=== PATIENT | male | born 1960 | race Caucasian/White ===

== ENCOUNTER 2018-03-27 06:27 | Emergency (ER) | payer OTHER ==
[~2018-03-27] VITALS: Ht 177.8 cm; Wt 90.7 kg
[~2018-03-27 06:27] MED LIST: ASPI325 PO; CARI350 PO; CHOL10002; CHOL10002 PO; CLON.1TP TP; CODBUTASA PO; CYCL10; CYCL10 PO; DOXY100 PO; Depo-Testo100 MG/1 M IM; EFFEXOR PO; Effexor Xr150 MG PO; HYDACE5 PO; IBUP600 PO; IBUP800; IBUP800 PO; LORA.5 PO; NAPR500 PO; OXYACE5T; OXYACE5T PO; OXYACE7.5T PO; OXYC15ER PO; OXYC5 PO; PARO10 PO; Percocet 5-3251 EACH PO; Roxicodone5 MG PO; TESTOSTER TD; TESTOSTERO200 MG/1 M IM; TOBDEXOPO LEFTEYE; Ultram50 MG PO; VENL75 PO; Zofran4 MG PO
[2018-03-27] MEDS ORDERED: Roxicodone5 MG PO (07:53)
[2018-03-27] MEDS ORDERED: Crutch1 EACH MISC (08:15)
== END 2018-03-27 08:25 | disposition home or self-care (01) ==
LOC: ER 06:27
DX: S83.92XA Sprain of unspecified site of left knee, initial encounter (principal); W18.30XA Fall on same level, unspecified, initial encounter; Z88.5 Allergy status to narcotic agent; Z88.8 Allergy status to other drugs, medicaments and biological substances; J44.9 Chronic obstructive pulmonary disease, unspecified; F17.210 Nicotine dependence, cigarettes, uncomplicated
CPT/HCPCS: 29505; 73562-LT; 99283-25

== ENCOUNTER 2018-08-25 12:38 | Emergency (ER) | payer OTHER ==
[~2018-08-25] VITALS: Ht 177.8 cm; Wt 99.8 kg
[~2018-08-25 12:38] MED LIST changes: +Crutch1 EACH MISC
== END 2018-08-25 14:42 | disposition home or self-care (01) ==
LOC: ER 12:38
DX: S06.0X9A Concussion with loss of consciousness of unspecified duration, initial encounter (principal); W22.8XXA Striking against or struck by other objects, initial encounter; Z88.5 Allergy status to narcotic agent; Z88.8 Allergy status to other drugs, medicaments and biological substances; F17.210 Nicotine dependence, cigarettes, uncomplicated
CPT/HCPCS: 70450; 72125; 99284-25

== ENCOUNTER → 2019-07-15 | Outpatient (CLI) | payer OTHER ==
[2019-07-15 14:49] LABS: Creatinine Urine 79.4 mg/dL (27.00-270.00); Protein, Urine Quantitative 5.9 mg/dL (0.0-11.9); Uric Acid, Urine 37.2 mg/dL (7.5-49.5)
[2019-07-15 14:58] LABS: Microalbumin, Urine Quant. 5.76 mg/L (0.000-20.000)
[2019-07-15 16:26] LABS: Phosphorus, Urine 87.3 mg/dL (20.0-60.0)
== END ==
LOC: LAB SHORT 12:14 → OLS 12:14 → LAB FUT 07-13 18:30
PROVIDERS: Internal Medicine Nephrology
DX: N18.2 Chronic kidney disease, stage 2 (mild) (principal); D63.1 Anemia in chronic kidney disease; R31.9 Hematuria, unspecified; N25.81 Secondary hyperparathyroidism of renal origin; E55.9 Vitamin D deficiency, unspecified; E78.00 Pure hypercholesterolemia, unspecified; R76.9 Abnormal immunological finding in serum, unspecified; R94.5 Abnormal results of liver function studies; R94.6 Abnormal results of thyroid function studies; R73.09 Other abnormal glucose; N20.0 Calculus of kidney
CPT/HCPCS: 81050; 82043; 82340; 82507; 82570; 83945; 84105; 84133; 84156; 84300; 84560

== ENCOUNTER 2020-05-15 02:04 | Inpatient (IN) | payer OTHER ==
[~2020-05-15] VITALS: Ht 175.3 cm; Wt 111.6 kg
[2020-05-15 02:22] LABS: BASOPHILS ABSOLUTE AUTO 0.08 K/mm3 (0.00-0.23); BASOPHILS PERCENT AUTO 1 % (0-2); EOSINOPHILS ABSOLUTE AUTO 0.18 K/mm3 (0.00-0.68); EOSINOPHILS PERCENT AUTO 1 % (0-6); Hematocrit 43.7 % (37.0-53.0); Hemoglobin 14.3 g/dL (13.5-17.5); IMMATURE GRAN ABSOLUTE AUTO 0.06 K/mm3 (0.00-0.10); IMMATURE GRAN PERCENT AUTO 0 % (0-1); LYMPHOCYTES ABSOLUTE AUTO 2.71 K/mm3 (0.84-5.20); LYMPHOCYTES PERCENT AUTO 20 % (21-46); MONOCYTES ABSOLUTE AUTO 1.08 K/mm3 (0.16-1.47); MONOCYTES PERCENT AUTO 8 % (4-13); Mean Corpuscular HGB 31.2 pg (26.0-34.0); Mean Corpuscular HGB Conc 32.7 g/dL (31.5-36.5); Mean Corpuscular Volume 95 fL (80-100); Mean Platelet Volume 10.3 fL (9.1-12.4); NEUTROPHILS ABSOLUTE AUTO 9.57 K/mm3 (1.96-9.15); NEUTROPHILS PERCENT AUTO 70 % (41-73); Platelet Count 267 K/mm3 (150-400); RDW Coefficient Variation 13.4 % (11.7-14.2); RDW Standard Deviation 47.4 fL (35.1-46.3); Red Blood Cell Count 4.58 M/mm3 (4.30-5.90); White Blood Cell Count 13.68 K/mm3 (4.00-11.30)
[2020-05-15 02:40] LABS: Alanine Aminotransfer (ALT/SGP 27 U/L (12-78); Albumin, Blood 3.3 g/dL (3.4-5.0); Albumin/Globulin Ratio 0.8 (0.8-1.8); Alk Phos 89 U/L (50-136); Anion Gap 5 mmol/L (6-16); Aspartate Aminotrans (AST/SGOT 19 U/L (12-37); Bilirubin, Total 0.1 mg/dL (0.1-1.0); Blood Urea Nitrogen 20 mg/dL (8-24); Bun/Creatinine Ratio 19.2 (12.0-20.0); CO2, Blood 29 mmol/L (21-32); Calcium, Blood 9.2 mg/dL (8.5-10.1); Chloride, Blood 106 mmol/L (98-108); Creatinine, Blood 1.04 mg/dL (0.60-1.20); Ethanol (Alcohol), Blood, Med <3 mg/dL; Globulin, Blood 3.9 g/dL (2.2-4.0); Glomerular Filtration Rate >60 (60-); Glucose, Blood 124 mg/dL (70-99); Potassium, Blood 4.2 mmol/L (3.5-5.5); Sodium, Blood 140 mmol/L (136-145); Total Protein, Blood 7.2 g/dL (6.4-8.2); Troponin I <0.015 ng/mL (0.000-0.040)
[2020-05-15 03:45] LABS: pH Blood Arterial 7.33 (7.35-7.45)
[2020-05-15 03:46] LABS: PO2 Arterial 127 mmHg (80-100)
[2020-05-15 03:59] LABS: Source, Urine Clean Catch
[2020-05-15 04:10] LABS: Bilirubin, Urine Neg (Neg); Blood, Urine Neg (Neg); Glucose Qualitative, Urine Neg (Neg); Ketones, Urine Neg (Neg); Leukocyte Esterase, Urine Neg (Neg); Nitrite, Urine Neg (Neg); Protein, Urine Neg (Neg); Specific Gravity, Urine 1.025 (1.003-1.022); Urobilinogen, Urine NORM (Normal)
[2020-05-15 04:12] LABS: Appearance, Urine Clear (Clear); Color, Urine Yellow (P-Yellow)
[2020-05-15 04:14] LABS: U Amphetamine Screen DETECTED; U Barbituate Screen Not Detected; U Benzodiazapine Screen DETECTED; U Buprenorphine Screen Not Detected; U Cannabinoids Screen DETECTED; U Cocaine Screen Not Detected; U Methadone Screen Not Detected; U Methamphetamine Screen DETECTED; U Opiates Screen DETECTED; U Oxycodone Screen DETECTED; U Phencyclidine Screen Not Detected; U Propoxyphene Screen Not Detected
[2020-05-15 05:05] LABS: CPK Creatine Kinase 187 U/L (39-308)
[2020-05-15 05:06] LABS: International Normalized Ratio 0.95; Prothrombin Time Results 10.2 Sec (9.7-11.5)
[2020-05-15 06:00] LABS: Influenza A, PCR Negative (NEGATIVE); Influenza B, PCR Negative (NEGATIVE); Resp Syncytial Virus, PCR Negative (NEGATIVE); SARS-Cov-2 (COVID-19) PCR, MMC Negative (NEGATIVE)
--- NOTE | 2020-05-15 06:25 | NUR ---
ADMIT PT ADMITTED TO ICU 10 VIA ER. ARRIVED VIA GURNEY WITH RN AND RT. PT ON VENT AND SEDATED WITH PROPOFOL. PT TRANSFERED TO BED BY STAFF WITH SLIDER SHEET. BILAT WRIST RESTRAINTS ON. SPLINT NOTED TO RIGHT WRIST. VSS. REPORT TO ON COMING NURSE
--- NOTE | 2020-05-15 07:58 | NUR ---
ASSUMED CARE: RECEIVED REPORT FROM NOC RN AT BEDSIDE. WHILE RECEIVING REPORT DAUGHTER OF PT ARIVES INTO THE ROOM AND APPEARS IN TEARS. APPEARS TO BE ANXIOUS MOVING ABOUT THE ROOM, PUPILS APPEAR TO BE VERY DIALLATED, AND ASKING QUESTIONS ABOUT WORDS STATED DURING REPORT SUCH EDEMA. EDUCATED DAUGHTER TO HER QUESTIONS. DAUGHTER STATES SHE IS 24 AND IS HIS OLDEST BIOLOGICAL CHILD, SHE CONTINUES TO STATE THAT THE SON THAT WAS MENTIONED IN THE DR DICTATION FROM ED IS NOT THE PATIENTS BIOLOGICAL SON AND IT IS JUST HER AND HER SISTER. EDUCATED DAUGHTER ON VISITATION RULES AT THIS TIME AND HOURS. STATES SHE DOES NOT WANT THE PATIENTS SISTER TO KNOW ANYTHING AT THIS TIME, ANY UPDATES TO THE PATIENTS SISTER WILL COME FROM THE DAUGHTER. DAUGHTER GAVE VERBAL CONCENT FOR BLOOD IF PT NEEDS.
--- NOTE | 2020-05-15 08:28 | NUR ---
SON: SON WENDY LEACH CALLED FOR AN UPDATE. STATES HE IS THE OLDEST OF THE PATIENTS CHILDREN AND RYANNE THE DAUGHTER THAT WAS HERE IS THE YOUNGEST. WENDY ALSO STATES HE WAS ADOPTED BY THE PT, ASKED IF THERE IS ANY PAPERWORK SHOWING LEGAL ADOPTION. STATES HE WILL LOOK TO SEE IF HIS MOTHER HAS THE PAPERWORK. THIS RN CONTACTED ALENA Carey RN IN PALATIVE CARE/ETHICS TEAM. ALENA STATES SHE WILL CONTACT THE SISTER SINCE SHE IS THE ONE ON THE FACE SHEET.
--- NOTE | 2020-05-15 08:40 | NUR ---
SISTER: PATIENTS SISTER RENATO CALLED FOR AN UPDATE. UPDATED HER ON THE SITUATION OF HIPPA AND FEDERAL LAW. LET HER KNOW THAT THE ETHICS DEPARTMENT HAS BEEN CONTACTED TO SORT OUT THIS ISSUE, BUT UNTIL THEN I AM ONLY ABLE TO INFORM HER THAT HE IS IN THE ICU AND THAT HE IS STABLE. RENATO STATES DR ANDINO TOLD HER THAT SHE WOULD BE ON THE LIST TO GET INFORMATION, BUT THIS RN EDUCATED HER THAT THIS IS NOT UP TO THE DOCTOR WHO IS ON THE LIST TO GET INFORMATION AND THE ETHICS DEPARTMENT IS INVOLVED TO GET THIS SORTED OUT.
[2020-05-15 10:22] LABS: BASOPHILS ABSOLUTE AUTO 0.06 K/mm3 (0.00-0.23); BASOPHILS PERCENT AUTO 1 % (0-2); EOSINOPHILS ABSOLUTE AUTO 0.15 K/mm3 (0.00-0.68); EOSINOPHILS PERCENT AUTO 2 % (0-6); Hematocrit 36.9 % (37.0-53.0); Hemoglobin 11.8 g/dL (13.5-17.5); IMMATURE GRAN ABSOLUTE AUTO 0.03 K/mm3 (0.00-0.10); IMMATURE GRAN PERCENT AUTO 0 % (0-1); LYMPHOCYTES ABSOLUTE AUTO 2.58 K/mm3 (0.84-5.20); LYMPHOCYTES PERCENT AUTO 32 % (21-46); MONOCYTES ABSOLUTE AUTO 0.68 K/mm3 (0.16-1.47); MONOCYTES PERCENT AUTO 8 % (4-13); Mean Corpuscular HGB 31.1 pg (26.0-34.0); Mean Corpuscular Volume 97 fL (80-100); Mean Platelet Volume 10.5 fL (9.1-12.4); NEUTROPHILS ABSOLUTE AUTO 4.58 K/mm3 (1.96-9.15); NEUTROPHILS PERCENT AUTO 57 % (41-73); Platelet Count 216 K/mm3 (150-400); RDW Coefficient Variation 13.5 % (11.7-14.2); RDW Standard Deviation 48.5 fL (35.1-46.3); White Blood Cell Count 8.08 K/mm3 (4.00-11.30)
[2020-05-15 10:51] LABS: Alanine Aminotransfer (ALT/SGP 20 U/L (12-78); Albumin, Blood 2.5 g/dL (3.4-5.0); Albumin/Globulin Ratio 0.8 (0.8-1.8); Alk Phos 69 U/L (50-136); Anion Gap 2 mmol/L (6-16); Aspartate Aminotrans (AST/SGOT 12 U/L (12-37); Bilirubin, Total 0.2 mg/dL (0.1-1.0); Blood Urea Nitrogen 15 mg/dL (8-24); Bun/Creatinine Ratio 22.9 (12.0-20.0); CO2, Blood 29 mmol/L (21-32); Calcium, Blood 8.3 mg/dL (8.5-10.1); Chloride, Blood 111 mmol/L (98-108); Creatinine, Blood 0.66 mg/dL (0.60-1.20); Glomerular Filtration Rate >60 (60-); Glucose, Blood 120 mg/dL (70-99); Potassium, Blood 3.7 mmol/L (3.5-5.5); Sodium, Blood 142 mmol/L (136-145); Total Protein, Blood 5.5 g/dL (6.4-8.2)
[2020-05-15 12:25] LABS: BASOPHILS ABSOLUTE AUTO 0.07 K/mm3 (0.00-0.23); BASOPHILS PERCENT AUTO 1 % (0-2); EOSINOPHILS ABSOLUTE AUTO 0.19 K/mm3 (0.00-0.68); EOSINOPHILS PERCENT AUTO 2 % (0-6); Hematocrit 37.6 % (37.0-53.0); Hemoglobin 12.1 g/dL (13.5-17.5); IMMATURE GRAN ABSOLUTE AUTO 0.03 K/mm3 (0.00-0.10); IMMATURE GRAN PERCENT AUTO 0 % (0-1); LYMPHOCYTES PERCENT AUTO 29 % (21-46); MONOCYTES ABSOLUTE AUTO 0.79 K/mm3 (0.16-1.47); MONOCYTES PERCENT AUTO 10 % (4-13); Mean Corpuscular HGB 31.4 pg (26.0-34.0); Mean Corpuscular HGB Conc 32.2 g/dL (31.5-36.5); Mean Corpuscular Volume 98 fL (80-100); Mean Platelet Volume 10.5 fL (9.1-12.4); NEUTROPHILS ABSOLUTE AUTO 4.82 K/mm3 (1.96-9.15); NEUTROPHILS PERCENT AUTO 58 % (41-73); Platelet Count 226 K/mm3 (150-400); RDW Coefficient Variation 13.8 % (11.7-14.2); RDW Standard Deviation 49.1 fL (35.1-46.3); Red Blood Cell Count 3.85 M/mm3 (4.30-5.90)
[2020-05-15 12:37] LABS: Alanine Aminotransfer (ALT/SGP 21 U/L (12-78); Albumin, Blood 2.6 g/dL (3.4-5.0); Albumin/Globulin Ratio 0.9 (0.8-1.8); Alk Phos 69 U/L (50-136); Anion Gap 1 mmol/L (6-16); Aspartate Aminotrans (AST/SGOT 12 U/L (12-37); Bilirubin, Total 0.2 mg/dL (0.1-1.0); Blood Urea Nitrogen 13 mg/dL (8-24); Bun/Creatinine Ratio 21.1 (12.0-20.0); CO2, Blood 30 mmol/L (21-32); Calcium, Blood 8.6 mg/dL (8.5-10.1); Chloride, Blood 111 mmol/L (98-108); Creatinine, Blood 0.62 mg/dL (0.60-1.20); Glomerular Filtration Rate >60 (60-); Glucose, Blood 112 mg/dL (70-99); Phosphorus, Blood 2.8 mg/dL (2.5-4.9); Potassium, Blood 3.6 mmol/L (3.5-5.5); Sodium, Blood 142 mmol/L (136-145); Total Protein, Blood 5.6 g/dL (6.4-8.2)
--- NOTE | 2020-05-15 19:45 | NUR ---
ASSESSMENT/ASSUMED CARE PT INTUBATED AND ON [facility] VENT. SEDATED WITH PROPOFOL AT 35 MCQ/KG/MN. LUNGS DECREASED, SUCTIONED LARGE AMT VIA ET TUBE THAN LUNGS CLEAR BUT DECREASED. VENT SETTINGS AC 18 TV 470 PEEP 5 FIO2 35%. LARGE AMT ORAL SERCTIONS NOTED. ORAL CARE DONE. HEART RATE REGULAR. BP STABLE. TRACE EDEMA TO BILAT HANDS AND LOWER EXT. SCD'S ON. BT+ OG TO LIS WITH YELLOW/GREEN BILE DRAINAGE. JUNE CATH PATENT AND DRAINING YELLOW URINE. IV 20G TO LEFT HAND WITH PROPOFOL, SITE CLEAR. IV 18G TO RIGHT AC WITH NS AT 150 ML/HR SITE CLEAR. BILAT SOFT WRIST RESTRAINT ON. BRACE NOTED TO RIGHT WRIST.
--- NOTE | 2020-05-15 20:40 | NUR ---
CALL TO MD CALL TO DR FREGOSO REGARDING SEDATION. WHEN TURNING PT HE TRIES TO SIT UP AND PULLS ON RESTRAINTS. HAD TO BE RESTRAINTED BY TWO STAFF MEMBERS TO PREVENT SELF EXTUBATION AND PROPOFOL HAD TO BE INCREASED TO 50 MCQ/KG/MIN FOR 5 MIN TO GET HIM TO CALM DOWN. OBTAINED ORDER FOR PRECEDEX GTT AND ATIVAN FROM DR FREGOSO.
--- NOTE | 2020-05-15 20:50 | NUR ---
MEDS STARTED PRECEDEX GTT AT 0.4 MCQ/KG/MIN.
[2020-05-16 04:02] LABS: BASOPHILS ABSOLUTE AUTO 0.04 K/mm3 (0.00-0.23); BASOPHILS PERCENT AUTO 0 % (0-2); EOSINOPHILS ABSOLUTE AUTO 0.14 K/mm3 (0.00-0.68); EOSINOPHILS PERCENT AUTO 1 % (0-6); Hematocrit 38.2 % (37.0-53.0); Hemoglobin 12.2 g/dL (13.5-17.5); IMMATURE GRAN ABSOLUTE AUTO 0.04 K/mm3 (0.00-0.10); IMMATURE GRAN PERCENT AUTO 0 % (0-1); LYMPHOCYTES ABSOLUTE AUTO 1.49 K/mm3 (0.84-5.20); LYMPHOCYTES PERCENT AUTO 14 % (21-46); MONOCYTES ABSOLUTE AUTO 0.73 K/mm3 (0.16-1.47); MONOCYTES PERCENT AUTO 7 % (4-13); Mean Corpuscular HGB Conc 31.9 g/dL (31.5-36.5); Mean Corpuscular Volume 97 fL (80-100); NEUTROPHILS PERCENT AUTO 77 % (41-73); Platelet Count 226 K/mm3 (150-400); RDW Coefficient Variation 13.6 % (11.7-14.2); Red Blood Cell Count 3.93 M/mm3 (4.30-5.90); White Blood Cell Count 10.54 K/mm3 (4.00-11.30)
[2020-05-16 04:31] LABS: Anion Gap 5 mmol/L (6-16); Blood Urea Nitrogen 7 mg/dL (8-24); Bun/Creatinine Ratio 13.4 (12.0-20.0); CO2, Blood 28 mmol/L (21-32); Calcium, Blood 8.5 mg/dL (8.5-10.1); Chloride, Blood 110 mmol/L (98-108); Creatinine, Blood 0.52 mg/dL (0.60-1.20); Glomerular Filtration Rate >60 (60-); Glucose, Blood 132 mg/dL (70-99); Magnesium, Blood 1.9 mg/dL (1.6-2.4); Phosphorus, Blood 2.9 mg/dL (2.5-4.9); Potassium, Blood 3.7 mmol/L (3.5-5.5); Sodium, Blood 143 mmol/L (136-145)
[2020-05-16 05:29] LABS: PCO2 Arterial 42.9 mmHg (35-45); PO2 Arterial 70.2 mmHg (80-100); pH Blood Arterial 7.44 (7.35-7.45)
--- NOTE | 2020-05-16 06:42 | NUR ---
SHIFT SUMMARY PT CONT INTUBATED AND ON [facility] VENT. CURRENT VENT SETTINGS AC 18 TV 470 PEEP 5 FIO2 35%. LUNGS DECREASED. SUCTIONED LARGE AMT SRECTIONS VIA ET TUBE, AND MOUTH. PT SEDATED ON PROPOFOL BUT STARTED ON PRECEDEX DUE TO TRYING TO SIT UP AND REACHING FOR ET TUBE WITH TURNING. PROPOFOL AT 35 MCQ/KG/MIN WITH PRECEDEX AT 0.4 MCQ/KG/MIN. HEART RATE REGULAR AND BP STABLE. PT MED WITH ATIVAN ONCE DURING THE SHIFT DUE TO PULLING AGAINST RESTRAINTS AND REACHING FOR ET TUBE. OG TO LIS WITH 400 ML OUT DURING THE NIGHT. PT TURNING SIDE TO SIDE DURING THE NIGHT. BED BATH GIVEN. REPORT TO ON COMING NURSE
--- NOTE | 2020-05-16 07:51 | NUR ---
ASSUMED CARE RECEIVED REPORT FROM [facility] GONSALVES. RIKERS SCALE OF 3. PT IS INTUBATED WITH 8.0 ETT, 25 @ TEETH. VENT SETTINGS: AC 18/470/5/35%. CURRENT GTTPs: PROPOFOL AT 35 MCG/KG/MIN, PRECEDEX AT 0.4 MCG/KG/HR, AND NS AT 150 ML/HR. HE IS IN SINUS RHYTHM, WITH A RIGHT BBB, RATE IN THE 70s. SPO2 IS 96%. BP STABLE, BUT SOFT, MAP > 65. RR 24-25. TEMP 99.5. PT HAS A PATENT JUNE WITH DARK COLORED URINE. SCDs IN PLACE. SWB RESTRAINTS IN PLACE. BED LOW AND LOCKED.
--- NOTE | 2020-05-16 11:09 | NUR ---
UPDATE TALKED WITH RENATO, SISTER, ON THE PHONE. SHE INFORMED ME ABOUT THE PT'S PROBLEM WITH SEVERE NECK PAIN FOR THE LAST WEEK, ALONG WITH EXCESSIVELY BLOWING HIS NOSE (SOMETIMES FOR AN HOUR STRAIGHT), AND HIS PROBLEM WITH ARTHRITIS IN HIS RIGHT ARM/HAND/WRIST. HE HAD AN APT WITH AN ENT (SHE IS UNSURE WHO) DOCTOR BUT THEN 'THIS HAPPENED'. RENATO SAYS THAT RYANNE, ONE OF THE DAUGHTERS, HAS BEEN TAKING PICTURES OF THE PT "AGAINST HIS WISHES". JUST TO PLEASE WATCH OUT FOR THAT. THE PLAN IS FOR WENDY, THE SON, TO VISIT THE PT TOMORROW, AND SHE ASKED IF WE COULD HOLD THAT SPOT FOR HIM.
--- NOTE | 2020-05-16 15:29 | NUR ---
UPDATE PT HAS BEEN HAVING SOFT BLOOD PRESSURES, SO PROPOFOL AND PRECEDEX WERE TITRATED DOWNWARD, SHORTLY AFTER THE PT WOKE UP, EYES OPEN, VERY AGITATED AND ANXIOUS, MOVING AROUND, LIFTING HEAD UP, PULLING ON RESTRAINTS - REACHING FOR THE ETT. PT COUGHING UP LOTS OF SECRETIONS, THIN CLEAR/WHITE MAINLY TRACHEAL. RR INCREASING TO THE 33s. PRECEDEX WAS TURNED UP TO 0.7 MCG/KG/HR, WHILE PROPOFOL IS AT 40 MCG/KG/MIN. PT GOT A SMALL FLUID BOLUS (250 ML) AND RESPONDED WELL, CURRENTLY RECEIVING NS AT 150 ML/HR. PT CALM AND COOPERATIVE NOW. BP STABLE, MAP > 65. NARROWED PULSE PRESSURE. BED LOW AND LOCKED.
--- NOTE | 2020-05-16 17:44 | NUR ---
SHIFT SUMMARY NO MAJOR CHANGES TODAY. A FEW TIMES T/O DAY PT WOKE UP AND BECAME VERY AGITATED VERY QUICKLY. NOT FOLLOWING COMMANDS, OPENING EYES BUT NOT LOOKING AT ME WHEN I WAS NEAR HIM, AND PULLING AT RESTRAINTS, REACHING FOR THE ETT. HE IS ON PRECEDEX AT 0.7 MCG/KG/HR, AND PROPOFOL AT 40 MCG/KG/MIN. OTHER THAN HIS PERIODS OF AGITATION - [facility] 3, SEDATED, RESTING ON THE VENT. SETTINGS ARE: AC 15/470/5/30%. ALONG WITH THE AGITATION PT HAS BEEN HAVING COPIOUS TRACHEAL SECRETIONS, THIN AND WHITE, BUT WHEN SEDATED/RESTING HE DOESN'T COUGH TOO MUCH AND DOESN'T HAVE NEARLY MUCH SECRETIONS NEEDING TO BE SUCTIONED. PT'S HR HAS TRENDED DOWNWARD TO THE 60s RANGE. SPO2 MID 90s - NO ISSUES ALL DAY. SOFT BPs, MAP > 65, NARROW PULSE PRESSURE. PT's LOW GRADE FEVER DECREASED T/O DAY, ONLY INTERVENTION WAS TAKING OFF HIS BLANKET, TEMP NOW 98.0-99.0F. TUBE FEEDING WAS STARTED TODAY, VITAL HIGH PROTEIN STARTED AT 25 ML/HR, RESIDUALS AT 1600 WERE ~ 8 ML. SUGAR AT ~[address] FREGOSO DECREASED FLUIDS (NS) TO 75 ML/HR, FROM 150 ML/HR - THE PT HAS BEEN HAVING SOFT BPs, AND HE BELIEVES THE PT IS NOT FLUID OVERLOADED. HE CONTINUES TO HAVE SWB RESTRAINTS, SCDs, AND A TEMP JUNE PATENT HAVING YELLOW-GREEN URINE. RENATO HAS BEEN UPDATED, AND WENDY (SON) HAS BEEN IN CONTACT - HE WISHES TO VISIT TOMORROW. RYANNE ALSO CALLED IN AND RECEIVED AN UPDATE - SHE IS VERY EMOTIONAL, AND WAS CRYING, SHE SAYS THAT SHE WILL CALL TOMORROW AT 1000 am TO SEE IF WENDY HAS COME IN OR NOT - SO THAT SHE CAN COME IN IF HE DOESNT, IF WENDY DOES COME IN, SHE WANTS TO COME IN ON FRIDAY HIS VISITOR. BED LOW AND LOCKED.
--- NOTE | 2020-05-16 22:56 | NUR ---
CARE ASSUMED 1900 PT INTUBATED AND SEDATED. PROPOFOL AT 40 MCG/KG/MIN AND PRECEDEX 0.7 MCG/KG/HR. AC 15/470/5/30%, SPO2 > 90%. PT RESPONDS TO NOXIOUS STIMULI, GRIMACING DURING ORAL CARE. HE IS IN SINUS RHYTHM WITH A BBB, MAP > 60 AND HR 50'S. VITAL HIGH PROTEIN AT 25 ML/HR WITH RESIDUAL OF 275 MLS. PLACED ON STANDBY FOR ONE HOUR. TEMP JUNE IN PLACE WITH YELLOW CLEAR URINE. PTS SPO2 DECREASED TO 87-90% AND FIO2 INCREASED TO 35% WITH GOOD RESPONSE.
[2020-05-17 03:50] LABS: BASOPHILS ABSOLUTE AUTO 0.06 K/mm3 (0.00-0.23); BASOPHILS PERCENT AUTO 1 % (0-2); EOSINOPHILS ABSOLUTE AUTO 0.14 K/mm3 (0.00-0.68); EOSINOPHILS PERCENT AUTO 2 % (0-6); Hematocrit 37.1 % (37.0-53.0); Hemoglobin 11.8 g/dL (13.5-17.5); IMMATURE GRAN ABSOLUTE AUTO 0.03 K/mm3 (0.00-0.10); IMMATURE GRAN PERCENT AUTO 0 % (0-1); LYMPHOCYTES ABSOLUTE AUTO 1.96 K/mm3 (0.84-5.20); LYMPHOCYTES PERCENT AUTO 24 % (21-46); MONOCYTES ABSOLUTE AUTO 0.69 K/mm3 (0.16-1.47); MONOCYTES PERCENT AUTO 8 % (4-13); Mean Corpuscular HGB 31.3 pg (26.0-34.0); Mean Corpuscular HGB Conc 31.8 g/dL (31.5-36.5); Mean Corpuscular Volume 98 fL (80-100); Mean Platelet Volume 10.6 fL (9.1-12.4); NEUTROPHILS PERCENT AUTO 65 % (41-73); Platelet Count 209 K/mm3 (150-400); RDW Coefficient Variation 13.8 % (11.7-14.2); RDW Standard Deviation 50.4 fL (35.1-46.3); Red Blood Cell Count 3.77 M/mm3 (4.30-5.90); White Blood Cell Count 8.18 K/mm3 (4.00-11.30)
[2020-05-17 04:09] LABS: Anion Gap 2 mmol/L (6-16); Blood Urea Nitrogen 6 mg/dL (8-24); Bun/Creatinine Ratio 9.4 (12.0-20.0); CO2, Blood 30 mmol/L (21-32); Calcium, Blood 8.7 mg/dL (8.5-10.1); Chloride, Blood 113 mmol/L (98-108); Creatinine, Blood 0.64 mg/dL (0.60-1.20); Glomerular Filtration Rate >60 (60-); Glucose, Blood 132 mg/dL (70-99); Magnesium, Blood 1.9 mg/dL (1.6-2.4); Phosphorus, Blood 3.7 mg/dL (2.5-4.9); Potassium, Blood 3.5 mmol/L (3.5-5.5); Sodium, Blood 145 mmol/L (136-145)
[2020-05-17 05:44] LABS: PCO2 Arterial 42.3 mmHg (35-45); pH Blood Arterial 7.39 (7.35-7.45)
--- NOTE | 2020-05-17 06:38 | NUR ---
SBT 0500 PROPOFOL PLACED ON STANDY AND PRECEDEX AT 0.7 MCG/KG/HR. PS 5, PEEP 0, AND FIO2 OF 35%. PER RT PT PASSED SBT. TIDAL VOLUMES BETWEEN [phone], RR BETWEEN 17-21, SPO2 96-98, HR 59-65, MAP > 65. PT ABLE TO FOLLOW COMMANDS AND NOD HEAD "YES/NO" TO SIMPLE QUESTIONS SUCH BEING IN PN. PT HAS THICK COPIOUS SECREATIONS WELL. PT BECAME AGIGATED AFTER SBT AND REQUIRED PROPOFOL AT 75 MCG/KG/MIN, SEE SHIFT SUMMARY.
--- NOTE | 2020-05-17 07:18 | NUR ---
SHIFT SUMMARY PT INTUBATED AND SEDATED. PROPOFOL AT 65 MCG/KG/MIN AND PRECEDEX 0.7 MG/KG/HR. AC 15/470/5/35%, SPO2 > 95%. DURING SEDATION VACATION PT ABLE TO FOLLOW COMMANDS, NOD YES/NO TO SIMPLE QUESTION, AND SQUEEZE HANDS BILATERALLY. AFTER SBT AND SEDATION VACATION PT BECAME AGITATED. PT STARTED TO PULL AT RESTRAINTS, KICKING IN BED, AND ATTEMPTING TO EXTUBATE. PROPOFOL AT THIS POINT INCREASED FROM 35 MCG/KG/MIN TO 75 MCG/KG/MIN. PT TREATED WITH ATIVAN 2 MG WITH GOOD EFFECT. PT TOLERATED SBT WELL, SEE SBT NOTE. OG TUBE IN PLACE AND VITAL HIGH PROTEIN PLACED ON PAUSE DUE TO HIGH RESIDUALS AND HYPOACTIVE BOWEL TONES, GOAL OF 35 ML/HR NOT REACHED DURING THIS SHIFT. TEMP JUNE IN PLACE WITH DARK YELLOW CLOUDY URINE. SWB AND SCDS IN PLACE. WILL REPORT TO ONCOMING SHIFT.
--- NOTE | 2020-05-17 08:00 | NUR ---
INITIAL ASSESSMENT PATIENT INTUBATED AND SEDATED ON PROPOFOL AND PRECEDEX. PATIENT UNRESPONSIVE. PROPOFOL DECREASED FROM 65 TO 55 MCG/ KG/ MINUTE. PATIENT AFEBRILE. NO SIGNS OF PAIN. SCLERA JAUNDICED/ RED/ EDEMATOUS. LUNGS COARSE THROUGHOUT; DIMINISHED IN BASES. NO SECRETIONS NOTED UPON SUCTIONING. VENT SETTINGS AC 15, TV 470, PEEP 5, 35% FIO2. PATIENT SB WITH BBB, HR IN THE 50S. SBP 90S TO LOW 100S. TRACE EDEMA NOTED IN UPPER AND LOWER EXTREMITIES. SCDS IN PLACE. ABDOMEN MILDLY DISTENDED, SOFT, WITH TYMPANIC BS NOTED. DATE OF LAST BM UNKNOWN. TF ON HOLD FOR HIGH RESIDUALS DURING NIGHT AND RESIDUALS OF 105 MLS THIS AM. TEMP PROBE JUNE DRAINING YELLOW/ GREEN COLORED URINE. SKIN APPEARS WNL. PRECEDEX AT 0.7 MCG/ KG/ HOUR, NS AT 75 MLS/ HOUR. BED LOW, CALL LIGHT IN REACH. WILL CONTINUE TO MONITOR PATIENT FREQUENTLY THROUGHOUT SHIFT.
--- NOTE | 2020-05-17 10:54 | NUR ---
PATIENT EXTUBATED AT 1020 AFTER PROPOFOL PLACED ON STANDBY AND PATIENT FOLLOWING SIMPLE COMMANDS. PATIENT ORIENTED TO SELF, SON THAT IS PRESENT IN ROOM, FOLLOWING DIRECTIONS. PATIENT CONFUSED TO WHY HE IS IN HOSPITAL. PATIENT STATES THAT THE LAST THING HE REMEMBERS IS GOING TO SLEEP. PATIENT ASKED IF HE REMEMBERS TAKING ANY DRUGS. PATIENT STATES "A LOT OF WEED". SUICIDE RISK ASSESSMENT PERFORMED AND PATIENT DENIES ANY SUICIDAL IDEATION. CHIEF CARDIOPULMONARY TECHNOLOGIST PRESENT TO SIT 1:[address] GARCIA CALLED AND INFORMED OF SUICIDE RISK ASSESSMENT. DOCTOR STATED THAT SHE DOES NOT BELIEVE PATIENT TRIED TO OVERDOSE AND DOES NOT SEEM HIS A SUICIDE RISK. DOCTOR STATED NO NEEDS FOR HOLD OR ANY TYPE OF SUICIDE MONITORING AT THIS TIME. CHIEF CARDIOPULMONARY TECHNOLOGIST INFORMED THAT THEY NO LONGER NEED TO SIT TO WATCH PATIENT AND THAT NO VIDEO MONITORING IS NEEDED. CHARGE NURSE, JOHNATHON GAONA, UPDATED ON SITUATION. PATIENT'S SON, WENDY, REMAINS IN ROOM WITH PATIENT. NURSE ABLE TO VISUALIZE FROM NURSING STATION COMPUTER.
--- NOTE | 2020-05-17 12:46 | NUR ---
PATIENT LABILE. PATIENT CHANGES BETWEEN JOKING WITH SON AND NURSE TO CRYING AND BEING IRRITABLE. PATIENT DISORIENTED TO MONTH AND WHY IS HE IN HOSPITAL. PATIENT CONTINUES TO ASK HOW HE ENDED UP IN HOSPITAL EVEN AFTER NURSE UPDATING. PATIENT REMAINS ON PRECEDEX AT 0.4 MCG/ KG/ HOUR BECAUSE OF AGITATION. WILL DECREASE ABLE. PATIENT AFEBRILE. PATIENT SATTING 90% AND GREATER ON RA. LUNGS REMAIN COARSE. PATIENT CONTINUES TO COUGH UP PHLEGM. HR 60S TO 70S. SBP 130S TO 140S. OG AND TF DC'D WHEN PATIENT EXTUBATED. BLOOD SUGAR OF 112. SON REMAINS AT BEDSIDE. BED LOW, CALL LIGHT IN REACH, BED ALARM ON. WILL CONTINUE TO MONITOR.
--- NOTE | 2020-05-17 14:34 | NUR ---
PATIENT EXTREMELY AGITATED THAT DOCTOR HAS NOT COME TO LOOK AT HIS WRIST. L WRIST DOES APPEAR SLIGHTLY EDEMATOUS AND SLIGHTLY REDDENED. PATIENT STATES HE FELL ON IT BEFORE HE WAS BROUGHT HERE IN AN AMBULANCE. PATIENT YELLS "IF DOCTOR DOESN'T COME TO SEE MY HAND THEN I AM OUT OF HERE!". DR. GARCIA CALLED AND INFORMED. DOCTOR STATED THAT SHE WOULD BE DOWN TO SEE HIM. PATIENT INFORMED.
--- NOTE | 2020-05-17 16:35 | NUR ---
TEMP OF PATIENT 99.1 DEGREES FAHRENHEIT. REMAINS SATTING 90% AND GREATER ON RA. HR 60S TO 70S. SBP 140S TO 160S. NO OTHER ACUTE CHANGES TO NOTE ON AT THIS TIME.
--- NOTE | 2020-05-17 17:17 | NUR ---
DR. GARCIA INFORMED THAT PATIENT'S BP CONTINUES TO BE HIGH. ORDERS RECEIVED.
--- NOTE | 2020-05-17 18:39 | NUR ---
SHIFT SUMMARY PATIENT INTUBATED AND SEDATED AT BEGINNING OF THE SHIFT. PATIENT EXTUBATED AT 1020. PATIENT HAS BEEN SATTING 90% AND GREATER ON RA. PATIENT CONTINUES TO HAVE STRONG, PRODUCTIVE COUGH. PATIENT HAD TMAX OF 99.1 DEGREES FAHRENHEIT. PATIENT HAS BEEN ALERT AND ORIENTED X 3. PATIENT HAS BEEN LABILE AND VERY AGITATED/ ANGRY AT TIMES. PATIENT NOT HAPPY THAT HE IS HERE IN HOSPITAL. PATIENT UPSET THAT THE DOCTORS WEREN'T "MORE CONCERNED WITH LEFT HAND AND WRIST". 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 IV PRESENT IN PATIENT'S L HAND MOST OF THE SHIFT. L HAND IV DRAWING BLOOD AND FLUSHING WELL. FLUIDS WERE MOVED FROM L HAND TO R AC AT BEGINNING OF SHIFT. XRAY OF L HAND AND WRIST PERFORMED. DR. GARCIA CAME TO LOOK AT HAND AND SOLUMEDROL IV GIVEN TO HELP. PATIENT HAS REMAINED SB TO SR, HR 50S TO 70S. SBP 90S TO 180S. PRN HYDRALAZINE OBTAINED AND GIVEN FOR HTN. NO BM THIS SHIFT. PATIENT HAD SWALLOW EVAL AND INCREASED TO FULL LIQUID DIET. PATIENT WAS NOT INTERESTED IN EATING. TEMP JUNE DRAINED ADEQUATE AMOUNT OF YELLOW/ GREEN URINE. PRECEDEX REMAINS INFUSING AT 0.7 MCG/ KG/ HOUR FOR PATIENT AGITATION. PATIENT RECEIVED ROCEPHIN THIS SHIFT. PATIENT WATCHING TV IN ROOM. BED LOW, CALL LIGHT IN REACH. REPORT WILL BE GIVEN TO ONCOMING COLLISION ESTIMATOR NURSE SHORTLY.
--- NOTE | 2020-05-17 21:15 | NUR ---
ASSUMED PT CARE AT 1915 FROM [facility] PT SITTING UP IN BED CURSING AT STAFF. UPSET THAT HE HAS "GREEN DRAINAGE" COMING FROM HIS NOSE AND HE KNOWS THAT MEANS AN INFECTION. PT STATED THAT STAFF DOESN'T GIVE A "F" AND THAT NO WONDER WHY "[facility] HAS THEIR BAD REP". DRAINAGE FROM NOSE THAT WAS NOTED ON WASH CLOTH WAS CLEAR AND THIN IN COLOR. ASKED PT HOW HE CONSUMES HIS METH BECAUSE THAT WILL CAUSE THE NOSE TO DRAIN. PT BECAME QUIET AND DIDN'T WANT TO ANSWER. INFORMED PT THAT NO JUDGMENT WAS BEING PASSED AND THAT IT WAS JUST A QUESTION TO GET TO THE BOTTOM OF THE NASAL DRAINAGE. PT MOCKED AND REPEATED WHAT I HAD SAID AND CONTINUED ON THAT HE HAS ONLY DONE METH A COUPLE TIMES. REASSURED PT THAT A FULL WORK UP WAS PERFORMED WHEN HE WAS ADMITTED TO THE HOSPITAL WITH NO INDICATION OF UNDERLYING INFECTION. PT ADAMANT THAT HIS NOSE DRAINAGE IS NOT NORMAL. PT STARTED COUGHING AND FORCING AIR OUT OF HIS MOUTH AND ASKED IF THAT WAS NORMAL. CONTINUED TO MAKE DEROGATORY COMMENTS ABOUT THIS NURSING STAFF AND THE HOSPITAL. INFORMED PT THAT HE HAD THE RIGHT TO LEAVE AND THAT I WAS HERE TO DO A JOB IN WHICH THAT CONSISTED TAKING CARE OF HIM. PT STATED THE LEAST I COULD DO IS HAVE A SMILE ON MY FACE. INFORMED HIM THAT STAFF ISN'T GOING TO WANT TO SMILE AT HIM IF HE CONTINUES TO MAKE DEROGATORY COMMENTS AND INSULTS TOWARD THE STAFF. PT STATED HE WOULD LEAVE IF HE KNEW HE WOULDN'T BE BLAMED BY THE HOSPITAL; VERY LABILE MOOD. MAKING NONSENSICAL STATEMENTS. CALL LIGHT WITHIN REACH AND PT STATED HE DIDN'T NEED ANYTHING ELSE. PRECEDEX TURNED OFF IT DIDN'T APPEAR TO BE MAKING A DIFFERENCE. THIS APPEARS TO BE PT'S BASELINE.
--- NOTE | 2020-05-18 00:30 | NUR ---
REASSESSMENT REAPPROACHED PT FOR REASSESSMENT. PT WAS STILL VERY UPSET THAT THE STAFF HASN'T COMMUNICATED WELL WITH HIM, HE CAME IN SCARED AND NOT KNOWING WHAT WAS GOING ON, IT IS LOUD OUT AT THE NURSES STATION, AND THE STAFF HAVEN'T "CARED" REGARDING HIS SWOLLEN HAND/WRIST. EXPRESSED TO PT THAT WITH HIS DEROGATORY COMMENTS AND INSULTS TOWARDS THE STAFF THEN IT CREATES A COMMUNICATION BARRIER THE STAFF DON'T WANT TO ENGAGE WITH SOMEONE WHO IS TREATING THEM POORLY. PT APOLOGIZED FOR HIS BEHAVIOR AND JUST VOCALIZED HIS FRUSTRATIONS; ACKNOWLEDGED PT'S FRUSTRATIONS AND SYMPATHIZED WITH PT. ASKED IF PT WANTED TO GET OUT OF BED AND INTO A RECLINER IN WHICH HE WAS WILLING. THEREFORE, DISCONTINUED JUNE CATHETER AND ASSISTED TO TOILET FOR PT TO HAVE A BM IN WHICH HE WAS SUCCESSFUL. ASSISTED PT TO RECLINER ONCE OFF THE TOILET. PT IS IN BETTER SPIRITS. STILL TEARFUL AT TIMES D/T PAIN IN HIS HANDS. STATES HE WAS GIVEN RHEUMATOID ARTHRITIS DX; HOWEVER, UNABLE TO START HIS MEDS D/T THE SPECIFIC DOCUMENTATION [facility] REQUIRES IN ORDER TO START THE MEDICATION. THEREFORE, PT VERY TEARFUL WITH THE DISCOMFORT AND PAIN HE EXPERIENCES IN HIS HANDS. HE ALSO MADE A COMMENT THAT IS THE REASON HE DOES DRUGS IS TO ESCAPE HIS PAIN. OBTAINED A COKE FOR PT. CALL LIGHT IS WITHIN REACH. ABLE TO MAKE HIS NEEDS KNOWN.
[2020-05-18 03:41] LABS: Hematocrit 38.9 % (37.0-53.0); Hemoglobin 12.7 g/dL (13.5-17.5); Mean Corpuscular HGB 31.2 pg (26.0-34.0); Mean Corpuscular HGB Conc 32.6 g/dL (31.5-36.5); Mean Corpuscular Volume 96 fL (80-100); Mean Platelet Volume 10.4 fL (9.1-12.4); Platelet Count 261 K/mm3 (150-400); RDW Coefficient Variation 13.1 % (11.7-14.2); RDW Standard Deviation 46.4 fL (35.1-46.3); Red Blood Cell Count 4.07 M/mm3 (4.30-5.90); White Blood Cell Count 11.04 K/mm3 (4.00-11.30)
[2020-05-18 04:00] LABS: Anion Gap 4 mmol/L (6-16); Blood Urea Nitrogen 7 mg/dL (8-24); Bun/Creatinine Ratio 13.3 (12.0-20.0); CO2, Blood 28 mmol/L (21-32); Calcium, Blood 9.2 mg/dL (8.5-10.1); Chloride, Blood 112 mmol/L (98-108); Creatinine, Blood 0.53 mg/dL (0.60-1.20); Glomerular Filtration Rate >60 (60-); Glucose, Blood 121 mg/dL (70-99); Magnesium, Blood 1.9 mg/dL (1.6-2.4); Phosphorus, Blood 3.5 mg/dL (2.5-4.9); Potassium, Blood 3.5 mmol/L (3.5-5.5); Sodium, Blood 144 mmol/L (136-145)
--- NOTE | 2020-05-18 05:53 | NUR ---
END OF SHIFT SUMMARY NO SIGNIFICANT CHANGES. PT CONTINUES TO OPEN UP TO THIS NURSE REGARDING TRIUMPHS AND DIFFICULTIES IN LIFE. VERY TEARFUL T/O SHIFT. SAYS HIS PAIN IN HIS HANDS IS SO UNBEARABLE THAT IT MAKES IT HARD TO MAKE LIFE WORTH LIVING. SAYS HE ONLY STAYS AROUND FOR HIS KIDS. STATES HE IS VERY CLEAR IN THE HEAD AND WILL CONTINUE TO USE DRUGS TO ESCAPE HIS PAIN. STATES HE IS FRUSTRATED WITH THE SYSTEM IN WHICH IT IS VERY DIFFICULT TO COME ACROSS PAIN MEDS. STATES HE MIGHT GET BETTER CARE IF HE ACTUALLY "CUT HIS HANDS OFF". PT STATES HE WAITED 3 MONTHS TO GET INTO AN ENT IN WHICH HE WAS TOLD HE NEEDED TO SEE A JIG AND FIXTURE REPAIRER. PT STATES HE CONTINUES TO GET DISCOURAGED AND IS TIRED OF WAITING ON APPTS AND HAS THEREFORE TURNED TO DRUGS FOR PAIN MANAGEMENT. WILL CONTINUE TO MONITOR UNTIL REPORT IS HANDED OFF TO ONCOMING RN. CALL LIGHT WITHIN REACH.
--- NOTE | 2020-05-18 08:55 | NUR ---
CARE ASSUMED ASSESSMENT COMPLETED, PT SITTING UP IN CHAIR, INDEPENDENT IN ROOM, ORIENTED X4. MOODS ARE LABILE, PT IRRITABLE, CRYING, AND JOKING DURING ASSESSMENTS. HRR, LS COARSE T/O, PT COUGHING UP CLEAR SPUTUM. ABD DISTENDED BUT SOFT, GOOD BT. BILAT WRISTS SWOLLEN AND PAINFUL, L MORE THAN R, PT STATES THIS IS FROM RA. ABX INFUSING PER ORDERS, PT COOPERATIVE WITH CARE. DR. ANDREA TO ASSESS, AWAITING ORDERS.
[2020-05-18] MEDS ORDERED: OMEP20ER PO (12:18)
[2020-05-18] MEDS ORDERED: LEVFLO500 PO (12:18)
[2020-05-18] MEDS ORDERED: PRED20 PO (12:21)
--- NOTE | 2020-05-18 14:25 | NUR ---
DISCHARGE NOTE IV ABX INFUSION COMPLETED THIS MORNING, TOLERATED WELL, PT EXPRESSES WISHES TO BE DC'D OR LEAVE AMA. PT SPOKE WITH REGARDING CONTINUED COUGH, CXR ORDERED. ALSO EXPRESSED CONCERNS REGARDING ARTHRITIS IN BILAT HANDS AND WRISTS, SOLUMEDROL ORDERED, SIGNIFICANT DECREASE IN SWELLING TO WRISTS WITHIN 2 HOURS AFTER PT RECEIVED IV STEROID. MOODS REMAIN LABILE, ATIVAN ADMINISTERED PER DR. GARCIA WITH GOOD RESULTS. PT REFUSED MEALS STATING HE HAS NO APPETITE, TAKING PO FLUIDS WITHOUT DIFFICULTY. CXR REVIEWED BY DR. GARCIA, DC ORDERS RECEIVED, IV DC'D WITH TIP INTACT, PRESSURE DRESSING APPLIED. PT GIVEN DC, MED, AND F/U INSTRUCTIONS, VERBALIZES UNDERSTANDING. INDEPENDENT WITH DRESSING, REFUESES WC, ESCORTED OUT OF UNIT, GAIT STEADY. DAUGHTER TO TAKE PATIENT HOME.
== END 2020-05-18 13:10 | disposition home or self-care (01) | DRG 917 ==
LOC: ER 02:04 → ICUW 04:48
PROVIDERS: Emergency Medicine; Internal Medicine; Internal Medicine Critical Care Medicine; ADMIT Internal Medicine
PROC: 0BH18EZ Insertion of Endotracheal Airway into Trachea, Via Natural or Artificial Opening Endoscopic (ICD-10-PCS; principal; 2020-05-15)
PROC: 5A1945Z Respiratory Ventilation, 24-96 Consecutive Hours (ICD-10-PCS; 2020-05-15)
PROC: 3E02340 Introduction of Influenza Vaccine into Muscle, Percutaneous Approach (ICD-10-PCS; 2020-05-15)
DX: T50.911A Poisoning by multiple unspecified drugs, medicaments and biological substances, accidental (unintentional), initial encounter (principal); J96.01 Acute respiratory failure with hypoxia; J18.9 Pneumonia, unspecified organism; M06.9 Rheumatoid arthritis, unspecified; Z96.651 Presence of right artificial knee joint; Z96.642 Presence of left artificial hip joint; F17.210 Nicotine dependence, cigarettes, uncomplicated; Z20.828 Contact with and (suspected) exposure to other viral communicable diseases; D64.9 Anemia, unspecified; Z78.1 Physical restraint status; M25.432 Effusion, left wrist; Z23 Encounter for immunization; E66.9 Obesity, unspecified; Z68.34 Body mass index [BMI] 34.0-34.9, adult
CPT/HCPCS: 0241U; 31500; 31720; 36415; 36600; 51702; 70450; 70496; 71045; 71046; 73110; 73130; 80048; 80053; 81003; 82330; 82550; 82803; 82947; 83690; 83735; 84100; 84484; 85025; 85027; 85610; 87040; 87070; 87205; 93005; 93010; 94002; 94003; 96361; 96361-59; 96365-59; 96375-59; 99285-25; C9113; G0009; G0480; J0330; J0696; J1650; J2060; J2250; J2310; J2405; J2704; J2930; J3010; J7030; J7060; J7120; Q2038; Q9967

== ENCOUNTER 2023-12-23 19:14 | Inpatient (IN) | payer OTHER ==
[~2023-12-23] VITALS: Ht 175.3 cm; Wt 95.0 kg
[~2023-12-23 19:14] MED LIST changes: +LEVFLO500 PO; +OMEP20ER PO; +PRED20 PO
[2023-12-23] MEDS ORDERED: Thiamine HCl 100 MG Tab PO ONE (20:00)
[2023-12-23 20:08] LABS: Hematocrit 45.2 % (37.0-53.0); Hemoglobin 14.8 g/dL (13.5-17.5); Mean Corpuscular HGB 30.5 pg (26.0-34.0); Mean Corpuscular HGB Conc 32.7 g/dL (31.5-36.5); Mean Corpuscular Volume 93 fL (80-100); Mean Platelet Volume 11.3 fL (9.1-12.4); Platelet Count 317 K/mm3 (150-400); RDW Coefficient Variation 13.6 % (11.7-14.2); RDW Standard Deviation 46.3 fL (35.1-46.3); Red Blood Cell Count 4.86 M/mm3 (4.30-5.90); White Blood Cell Count 7.22 K/mm3 (4.00-11.30)
[2023-12-23 20:28] LABS: BASOPHILS ABSOLUTE MAN 0.07 K/mm3 (0.00-0.23); BASOPHILS PERCENT MAN 1 % (0-2); EOSINOPHILS ABSOLUTE MAN 0.07 K/mm3 (0.00-0.68); EOSINOPHILS PERCENT MAN 1 % (0-6); LYMPHOCYTES % ATYPICAL MANUAL 1 % (0-0); LYMPHOCYTES ABSOLUTE MAN 1.87 K/mm3 (0.84-5.20); LYMPHOCYTES PERCENT MAN 25 % (21-46); MONOCYTES ABSOLUTE MAN 0.57 K/mm3 (0.16-1.47); MONOCYTES PERCENT MAN 8 % (4-13); NEUTROPHILS ABSOLUTE MAN 4.62 K/mm3 (1.96-9.15); SEG NEUTROPHILS PERCENT MAN 64 % (41-73); TOTAL CELLS COUNTED 100
[2023-12-23 20:30] LABS: Albumin, Blood 2.7 g/dL (3.4-5.0); Albumin/Globulin Ratio 0.7 (0.8-1.8); Bilirubin, Total 0.5 mg/dL (0.1-1.0); Bun/Creatinine Ratio 20.9 (12.0-20.0); Calcium, Blood 8.6 mg/dL (8.5-10.1); Creatinine, Blood 0.62 mg/dL (0.60-1.20); Globulin, Blood 3.9 g/dL (2.2-4.0); Potassium, Blood 3.2 mmol/L (3.5-5.5); Total Protein, Blood 6.6 g/dL (6.4-8.2)
[2023-12-23] MEDS ORDERED: NS 1,000 ML IV SCH (20:35)
[2023-12-23] MEDS ORDERED: CefTRIAXone Sodium 2,000 MG in NS 100 ML IV ONE (20:35)
[2023-12-23] MEDS ORDERED: Azithromycin 250 MG Tab PO ONE (20:35)
[2023-12-23 21:03] LABS: Influenza A, PCR NEGATIVE (NEGATIVE); Influenza B, PCR NEGATIVE (NEGATIVE); Resp Syncytial Virus, PCR NEGATIVE (NEGATIVE)
[2023-12-23 21:15] LABS: SARS-Cov-2 (COVID-19) PCR, MMC POSITIVE (NEGATIVE)
[2023-12-23] MEDS ORDERED: Potassium Chloride 10 Meq Tablet SA PO ONE (21:25)
[2023-12-23] MEDS ORDERED: OxyCODONE HCL 5 MG TAB PO ONE (23:00)
[2023-12-23] MEDS ORDERED: OxyCODONE HCL 5 MG TAB PO PRN (23:00)
[2023-12-23] MEDS ORDERED: NS 1,000 ML IV ONE (23:00)
[2023-12-23] MEDS ORDERED: Guaifenesin/Dextromethorphan Syrup 5 ML UDC PO PRN (23:05)
[2023-12-23] MEDS ORDERED: Melatonin 3 MG Tab PO PRN (23:05)
[2023-12-23] MEDS ORDERED: Albuterol HFA200 ACT/6.7 GM INH INH PRN (23:10)
[2023-12-24] VITALS (20 sets, daily range): BP systolic 94–132; BP diastolic 81–110
--- NOTE | 2023-12-24 02:35 | NUR ---
TRANSFER NOTE/ASSUMPTION OF CARE THIS RN RECEIVED REPORT FROM ALESSIA LAMAS IN THE ED VIA PHONE. PT TRANSFERRED TO PCU 7 AT 0020. PT SLID SELF OVER FROM GURNEY TO BED, REPORTED LEFT HIP PAIN WITH MOVEMENT. MEDICATED PER EMAR PRIOR TO ARRIVAL TO UNIT. HR NOTED TO BE IN THE 150'S, APPEARED TO BE A WIDE COMPLEX TACHYCARDIA. DENIED CHEST PAIN/PRESSURE. REPORTED GENERALIZED FEELING "UNWELL". BP STABLE. ON RA WITH SPO2 >90%. CALL PLACED TO MD CORDOBA REGARDING CONTINUED ELEVATED HEART RATE. MD WITH ORDER FOR REPEAT EKG. MD CORDOBA TO BEDSIDE TO REVIEW EKG. ORDER FOR AMIODARONE GTT AND BOLUS PLACE. VERBAL ORDER FOR ECHO. BOLUS FINISHED AT TIME OF WRITING THIS NOTE. INFUSING GTT AT THIS TIME. PT EDUCATED ON NEEDING URINE AND SPUTUM SAMPLE. HR DOWN TO 140'S AT TIME OF WRITING THIS NOTE. NO OTHER CHANGES. BP REMAINS STABLE. PT PLACED ON 2L VIA NC WITH SLEEP. REPORTED HX OF COPD AND MARITA. BED IN LOWEST POSITION AND CALL LIGHT WITHIN REACH. THIS RN WILL REPORT TO ONCYURIY SIFUENTESFT RN.
[2023-12-24 04:18] LABS: BASOPHILS ABSOLUTE AUTO 0.03 K/mm3 (0.00-0.23); BASOPHILS PERCENT AUTO 0 % (0-2); EOSINOPHILS ABSOLUTE AUTO 0.08 K/mm3 (0.00-0.68); EOSINOPHILS PERCENT AUTO 1 % (0-6); Hematocrit 39.9 % (37.0-53.0); Hemoglobin 13.2 g/dL (13.5-17.5); IMMATURE GRAN ABSOLUTE AUTO 0.11 K/mm3 (0.00-0.10); IMMATURE GRAN PERCENT AUTO 1 % (0-1); LYMPHOCYTES ABSOLUTE AUTO 2.75 K/mm3 (0.84-5.20); LYMPHOCYTES PERCENT AUTO 32 % (21-46); MONOCYTES ABSOLUTE AUTO 0.73 K/mm3 (0.16-1.47); MONOCYTES PERCENT AUTO 9 % (4-13); Mean Corpuscular HGB 30.5 pg (26.0-34.0); Mean Corpuscular HGB Conc 33.1 g/dL (31.5-36.5); Mean Corpuscular Volume 92 fL (80-100); Mean Platelet Volume 11.2 fL (9.1-12.4); NEUTROPHILS ABSOLUTE AUTO 4.92 K/mm3 (1.96-9.15); NEUTROPHILS PERCENT AUTO 57 % (41-73); Platelet Count 322 K/mm3 (150-400); RDW Coefficient Variation 13.5 % (11.7-14.2); RDW Standard Deviation 46.2 fL (35.1-46.3); Red Blood Cell Count 4.33 M/mm3 (4.30-5.90); White Blood Cell Count 8.62 K/mm3 (4.00-11.30)
--- NOTE | 2023-12-24 04:31 | NUR ---
SHIFT SUMMARY SEE PREVIOUS NOTE. PT CONTINUES TO BE ON AMIO GTT. HR NOW 130-140'S. SBP 90-100'S. PT DIAPHORETIC AT TIMES BUT STATES THIS IS HIS NORMAL WHILE SLEEPING. PT NOTED TO DESAT TO THE LOW 80'S WHILE SLEEPING, PLACED ON 2-3L VIA NC TO MAINTAIN SPO2 WHILE SLEEPING. PT HAS NOT YET URINATED SINCE ARRIVAL TO UNIT, DENIED NEED FOR BLADDER SCAN AT THIS TIME. PT AGGITATED AT TIMES BY CARE AND FREQUENT VITALS. PT ASKED TO BE LEFT ALONE TO SLEEP. THIS RN EDUCATED PT REGARDING PLAN OF CARE. BED IN LOWEST POSITION AND CALL LIGHT WITHIN REACH. THIS RN WILL REPORT TO ONCOMING DAYSHIFT RN.
[2023-12-24 05:02] LABS: Albumin, Blood 2.5 g/dL (3.4-5.0); Albumin/Globulin Ratio 0.7 (0.8-1.8); Bilirubin, Total 0.4 mg/dL (0.1-1.0); Bun/Creatinine Ratio 25.9 (12.0-20.0); Calcium, Blood 8.4 mg/dL (8.5-10.1); Creatinine, Blood 0.54 mg/dL (0.60-1.20); Globulin, Blood 3.5 g/dL (2.2-4.0); Potassium, Blood 3.4 mmol/L (3.5-5.5)
--- NOTE | 2023-12-24 05:41 | NUR ---
PATIENT UPDATE ORDERS PLACED BY MD CORDOBA FOR CARDIOLOGY CONSULT AND CT PE STUDY. THIS RN CALLED ANSWERING SERVICE AND PLACED CARDIOLOGY CONSULT FOR THIS MORNING. PT WAS JUST TAKEN TO IMAGING FOR PE STUDY. NO RESULTS YET. THIS RN WILL REPORT TO ONCOMING DAYSHIFT RN.
[2023-12-24 06:48] LABS: Source, Urine Voided
[2023-12-24 06:53] LABS: Appearance, Urine Clear (Clear); Bilirubin, Urine Neg (Neg); Blood, Urine Neg (Neg); Color, Urine Yellow (P-Yellow); Glucose Qualitative, Urine Neg (Neg); Ketones, Urine Neg (Neg); Leukocyte Esterase, Urine Neg (Neg); Nitrite, Urine Neg (Neg); Protein, Urine 1+ (Neg); Urobilinogen, Urine NORM (Normal)
[2023-12-24 07:17] LABS: U Amphetamine Screen DETECTED; U Cannabinoids Screen DETECTED; U Methamphetamine Screen DETECTED; U Oxycodone Screen DETECTED
[2023-12-24 07:18] LABS: U Barbituate Screen Not Detected; U Benzodiazapine Screen Not Detected; U Buprenorphine Screen Not Detected; U Cocaine Screen Not Detected; U Methadone Screen Not Detected; U Opiates Screen Not Detected; U Phencyclidine Screen Not Detected
[2023-12-24] MEDS ORDERED: Potassium Chl 20MEQ/Water100ML 100 ML IV STA (08:58)
[2023-12-24] MEDS ORDERED: Lactobacil 2-S.Thermo-Bifido 1 1 Cap PO SCH (09:00)
[2023-12-24] MEDS ORDERED: Enoxaparin 40 MG/0.4 ML SYR SC SCH (09:00)
[2023-12-24] MEDS ORDERED: Docusate Sodium 100 MG Cap PO SCH (09:00)
[2023-12-24 11:10] LABS: International Normalized Ratio 1.02; Prothrombin Time Results 10.9 Sec (9.7-11.5)
[2023-12-24] MEDS ORDERED: Dose Adjust by Pharmacy XX STA ×2 (11:19→20:21)
[2023-12-24] MEDS ORDERED: Heparin Sodium,Porcine/0.5 NS 500 ML IV SCH (11:20)
[2023-12-24] MEDS ORDERED: NS 250 ML IV PRN (13:55)
[2023-12-24] MEDS ORDERED: Diltiazem HCl 5 MG / ML 5ML Vial IV ONE (14:35)
[2023-12-24] MEDS ORDERED: CefTRIAXone Sodium 1,000 MG in NS 100 ML IV SCH (15:00)
[2023-12-24] MEDS ORDERED: dilTIAZem HCL 100 MG in NS 100 ML IV SCH (16:50)
[2023-12-24] MEDS ORDERED: Digoxin 0.25 MG/ML 2ML Amp IV SCH (18:10)
--- NOTE | 2023-12-24 18:43 | NUR ---
ASSUMED CARE OF PT AT 0700 THIS AM. PT ON AMIODARONE GTT, IV SITE HAS REMAINED WNL T/O THE DAY, NO S/SX OF INFILTRATION. HR HAS REMAINED ELEVATED 120-140s T/O THE DAY. DR ATWOOD IN TO SEE PT THIS AFTERNOON. CT-PE FROM THIS AM INDICATES BILATERAL LOWER LOBE PEs, FOR WHICH PT IS STARTED ON HEPARIN. ECHO COMPLETED THIS SHIFT WELL, SEE DOCUMENTED RESULTS. DR DOMINGO CONSULTING WELL, PT GIVEN A CARDIZEM PUSH WITH LITTLE EFFECT, PT THEN STARTED ON CARDIZEM GTT AT 10MG/HR CONTINUOUSLY, NOT TO BE TITRATED PER DR DOMINGO AND DIGOXIN LOADING DOSE GIVEN WELL. PT HAS BEEN SLEEPING ON AND OFF T/O THE DAY, SEE DOCUMENTED VS, REMAINS ON RA. PT IS ABLE TO USE CALL LIGHT FOR NEEDS, COOPERATIVE WITH CARE, ALTHOUGH HE MAKES IT CLEAR HE IS NOT HAPPY TO BE IN THE HOSPITAL AND WANTS TO GO HOME. PT EDUCATED ON HIS CONDITION AND TREATMENT PLAN, THIS RN ENCOURAGES HIM TO STAY. PT AGREES. CALL LIGHT IN REACH. WILL CONTINUE TO MONITOR AND GIVE REPORT TO NOC SHIFT RN.
[2023-12-24] MEDS ORDERED: QUEtiapine Fumarate 25 MG Tab PO PRN (21:20)
[2023-12-25] VITALS (12 sets, daily range): BP systolic 90–117; BP diastolic 60–88
[2023-12-25] MEDS ORDERED: Dose Adjust by Pharmacy XX STA ×2 (03:25→11:00)
--- NOTE | 2023-12-25 04:26 | NUR ---
SHIFT SUMMARY THIS RN ASSUMED CARE OF PATIENT AT 1900. NO ACUTE CHANGES OVERNIGHT. A&O X4 ABLE TO MAKE NEEDS KNOWN. IRRITABLE AT TIMES. AFLUTTER/FIB NOTED AT BEGINNING OF SHIFT WITH HR 130'S. AMIO GTT COMPLETED. AROUND 0200 PT WITH HR 80-90'S, CONTINUES AFLUTTER/AFIB. CARDIZEM PLACED ON STANDBY. HR CONTINUES TO BE IN THE 90'S AT THIS TIME. DIG GIVEN PER EMAR. SBP 90'S AT THIS TIME. MAP >65. DENIES CHEST PAIN/PRESSURE. ON RA WHILE AWAKE, NEEDING 1-2L VIA NC WHILE SLEEPING. PT VOIDED AROUND 1900. DENIES NEED TO VOID SINCE, REFUSED BLADDER SCAN AND YELLED AT STAFF FOR "BOTHERING" HIM. HEP GTT INFUSING PER EMAR. PT FOUND LIGHTERS IN POCKET OF SHIRT THAT DAUGHTER HAD BROUGHT HIM. LIGHTERS LOCKED IN ROOM CABINET WITH PT LABEL. SKIN WASHER AWARE. BED IN LOWEST POSITION AND CALL LIGHT WITHIN REACH. THIS RN WILL REPORT TO ONCOMING DAYSHIFT RN.
[2023-12-25 10:27] LABS: Hemoglobin 12.4 g/dL (13.5-17.5); Mean Platelet Volume 11.4 fL (9.1-12.4); Platelet Count 320 K/mm3 (150-400)
[2023-12-25 10:44] LABS: Bun/Creatinine Ratio 22.7 (12.0-20.0); Calcium, Blood 8.9 mg/dL (8.5-10.1); Creatinine, Blood 0.62 mg/dL (0.60-1.20); Potassium, Blood 3.6 mmol/L (3.5-5.5)
[2023-12-25] MEDS ORDERED: Apixaban 5 MG Tab PO SCH (13:30)
[2023-12-25] MEDS ORDERED: Metoprolol Tartrate 25 MG Tab PO SCH (14:00)
--- NOTE | 2023-12-25 17:38 | NUR ---
ASSUMED CARE OF PT AT 0700 THIS AM. PT HAS HAD NO COMPLAINTS T/O THE SHIFT. DECLINED ALL ADLs TODAY. SEE DOCUMENTED VS AND ASSESSMENT. ORDERS TO SWITCH PT FROM IV ANTICOAG AND HR CONTROL MEDICATION TO PO TODAY. SEE MD NOTES FOR DETAILS. PLAN IS FOR PT TO DC HOME TOMORROW. PT EDUCATED AND COUNSELED ON THE IMPORTANCE OF TAKING HIS MEDICATIONS PRESCRIBED ON DISCHARGE, PT VERBALIZED UNDERSTANDING AND FAMILY IN ROOM WELL. NO ACUTE CHANGES. PT SLEPT MOST OF THE DAY AND DECLINED ALL OFFERED ACTIVITIES AND ADLs. PT ABLE TO USE CALL LIGHT AND MAKE NEEDS KNOWN APPROPRIATELY. WILL CONTINUE TO MONITOR AND GIVE REPORT TO NOC SHIFT RN.
[2023-12-25] MEDS ORDERED: Amiodarone HCl 200 MG Tab PO SCH (21:00)
[2023-12-26 04:24] VITALS: BP 107/80
--- NOTE | 2023-12-26 04:31 | NUR ---
SHIFT SUMMARY THIS RN ASSUMED CARE OF PATIENT AT 1900. NO ACUTE CHANGES OVERNIGHT. A&O X4. ABLE TO MAKE NEEDS KNOWN. AGGITATED AT TIMES WITH STAFF. AFIB/FLUTTER WITH HR 90-110'S. INCREASED TO 130-140S WITH EXERTION. BP STABLE. ON RA WHILE AWAKE, NEEDING 1-2L VIA NC WHILE SLEEPING TO MAINTAIN SPO2. AFEBRILE. PIV'S SALINE LOCKED. PT AMBULATING WELL TO BATHROOM INDEPENDENTLY. BED IN LOWEST POSITION AND CALL LIGHT WITHIN REACH. THIS RN WILL REPORT TO ONCOMING DAYSHIFT RN.
[2023-12-26 04:38] LABS: Hematocrit 37.2 % (37.0-53.0); Hemoglobin 12.1 g/dL (13.5-17.5); Mean Corpuscular HGB 30.8 pg (26.0-34.0); Mean Corpuscular HGB Conc 32.5 g/dL (31.5-36.5); Mean Corpuscular Volume 95 fL (80-100); Platelet Count 351 K/mm3 (150-400); RDW Coefficient Variation 13.9 % (11.7-14.2); RDW Standard Deviation 48.6 fL (35.1-46.3); Red Blood Cell Count 3.93 M/mm3 (4.30-5.90); White Blood Cell Count 8.55 K/mm3 (4.00-11.30)
[2023-12-26 05:07] LABS: Bun/Creatinine Ratio 26.3 (12.0-20.0); Calcium, Blood 8.9 mg/dL (8.5-10.1); Creatinine, Blood 0.69 mg/dL (0.60-1.20); Magnesium, Blood 1.8 mg/dL (1.6-2.4); Phosphorus, Blood 4.9 mg/dL (2.5-4.9); Potassium, Blood 4.2 mmol/L (3.5-5.5)
[2023-12-26] MEDS ORDERED: Digoxin 0.25 MG Tab PO SCH (09:00)
[2023-12-26 09:28] VITALS: BP 122/92
[2023-12-26 11:12] VITALS: BP 105/81
[2023-12-26] MEDS ORDERED: ELIQUIS5 M2 PO (12:32)
[2023-12-26] MEDS ORDERED: PACERONE100 M1 PO (12:32)
[2023-12-26] MEDS ORDERED: CEPH500 PO (12:33)
[2023-12-26] MEDS ORDERED: DIGOX250 MCG PO (12:33)
[2023-12-26] MEDS ORDERED: METO50ER PO (12:34)
--- NOTE | 2023-12-26 14:58 | NUR ---
DISCHARGE SUMMARY PT A&Ox4, CALLS AND COMMUNICATES NEEDS, SHORT AND GRUMPY WITH STAFF. IND IN ROOM. BP STABLE, AFLUTTER w/ BBB 70-100's UP TO 140's WITH ACTIVITY, DENIES CP/PRESSURE. SpO2> 92% RA, DENIES SOB. DISCHARGE INSTRUCTIONS PROVIDED. AT APPROXIMATELY 1415 PT TAKEN OUT VIA WHEELCHAIR WITH ALL BELONGINGS BY CLINICAL STAFF MEMBER.
== END 2023-12-26 14:24 | disposition home or self-care (01) | DRG 177 ==
LOC: ER 19:14 → PCU 19:15
PROVIDERS: Emergency Medicine; Hospitalist; Internal Medicine; ADMIT Student in an Organized Health Care Education/Training Program
DX: U07.1 COVID-19 (principal); I26.99 Other pulmonary embolism without acute cor pulmonale; I50.23 Acute on chronic systolic (congestive) heart failure; J12.82 Pneumonia due to coronavirus disease 2019; I47.20 Ventricular tachycardia, unspecified; I48.92 Unspecified atrial flutter; J44.0 Chronic obstructive pulmonary disease with (acute) lower respiratory infection; I48.91 Unspecified atrial fibrillation; M19.90 Unspecified osteoarthritis, unspecified site; M06.9 Rheumatoid arthritis, unspecified; I35.0 Nonrheumatic aortic (valve) stenosis; J84.10 Pulmonary fibrosis, unspecified; J43.9 Emphysema, unspecified; F17.210 Nicotine dependence, cigarettes, uncomplicated; E87.6 Hypokalemia; I45.10 Unspecified right bundle-branch block; F15.10 Other stimulant abuse, uncomplicated; Z71.6 Tobacco abuse counseling
CPT/HCPCS: 0241U; 36415; 71045; 71260; 80048; 80053; 83605; 83735; 83880; 84100; 84443; 84484; 85014; 85018; 85025; 85027; 85049; 85379; 85610; 85730; 87040; 87070; 87077; 87147; 87186; 87205; 93005; 93010; 93306; 94762; 96361; 96365; 96366; 96367; 96375; 99285-25; A9270; G0378; J0282; J0696; J1160; J1644; J1650; J3480; J7030; J7060; Q9967

== ENCOUNTER 2024-12-30 20:29 | Emergency (ER) | payer OTHER ==
[~2024-12-30] VITALS: Ht 175.3 cm; Wt 90.7 kg
[~2024-12-30 20:29] MED LIST changes: +CEPH500 PO; +DIGOX250 MCG PO; +ELIQUIS5 M2 PO; +METO50ER PO; +PACERONE100 M1 PO
[2024-12-30 20:32] VITALS: BP 144/81
[2024-12-30 21:09] LABS: BASOPHILS ABSOLUTE AUTO 0.06 K/mm3 (0.00-0.23); BASOPHILS PERCENT AUTO 1 % (0-2); EOSINOPHILS ABSOLUTE AUTO 0.10 K/mm3 (0.00-0.68); EOSINOPHILS PERCENT AUTO 1 % (0-6); Hematocrit 39.3 % (37.0-53.0); Hemoglobin 12.6 g/dL (13.5-17.5); IMMATURE GRAN ABSOLUTE AUTO 0.04 K/mm3 (0.00-0.10); IMMATURE GRAN PERCENT AUTO 1 % (0-1); LYMPHOCYTES ABSOLUTE AUTO 2.39 K/mm3 (0.84-5.20); LYMPHOCYTES PERCENT AUTO 32 % (21-46); MONOCYTES ABSOLUTE AUTO 0.59 K/mm3 (0.16-1.47); MONOCYTES PERCENT AUTO 8 % (4-13); Mean Corpuscular HGB Conc 32.1 g/dL (31.5-36.5); Mean Corpuscular Volume 94 fL (80-100); NEUTROPHILS ABSOLUTE AUTO 4.19 K/mm3 (1.96-9.15); NEUTROPHILS PERCENT AUTO 57 % (41-73); NRBC ABSOLUTE 0.00 K/mm3 (0.00-0.02); NRBC Auto 0.0 /100 WBC (0.0-0.2); Platelet Count 193 K/mm3 (150-400); RDW Coefficient Variation 14.8 % (11.7-14.2); RDW Standard Deviation 51.6 fL (35.1-46.3)
[2024-12-30 21:21] LABS: Alanine Aminotransfer (ALT/SGP 58.0 U/L (12-78); Albumin, Blood 3.7 g/dL (3.4-5.0); Albumin/Globulin Ratio 1.1 (0.8-1.8); Anion Gap 12.0 mmol/L (3-11); Aspartate Aminotrans (AST/SGOT 68.0 U/L (12-37); Bilirubin, Total 0.3 mg/dL (0.1-1.0); Blood Urea Nitrogen 11.0 mg/dL (8-24); CO2, Blood 23.0 mmol/L (21-32); Calcium, Blood 8.6 mg/dL (8.5-10.1); Chloride, Blood 110.0 mmol/L (98-108); Creatinine, Blood 0.86 mg/dL (0.60-1.20); Globulin, Blood 3.3 g/dL (2.2-4.0); Glucose, Blood 103.0 mg/dL (70-99); Potassium, Blood 3.5 mmol/L (3.5-5.5); Sodium, Blood 141.0 mmol/L (136-145); Total Protein, Blood 7.0 g/dL (6.4-8.2)
[2024-12-30 21:29] LABS: Prothrombin Time Results 11.0 Sec (9.7-11.5)
== END 2024-12-30 23:02 | disposition home or self-care (01) ==
LOC: ER 20:29
PROVIDERS: Student in an Organized Health Care Education/Training Program
DX: S41.112A Laceration without foreign body of left upper arm, initial encounter (principal); S41.111A Laceration without foreign body of right upper arm, initial encounter; S01.81XA Laceration without foreign body of other part of head, initial encounter; M25.572 Pain in left ankle and joints of left foot; M25.571 Pain in right ankle and joints of right foot; M25.552 Pain in left hip; M25.562 Pain in left knee; M25.561 Pain in right knee; V49.9XXA Car occupant (driver) (passenger) injured in unspecified traffic accident, initial encounter; Z87.39 Personal history of other diseases of the musculoskeletal system and connective tissue; F17.210 Nicotine dependence, cigarettes, uncomplicated; Z79.899 Other long term (current) drug therapy; Z88.5 Allergy status to narcotic agent; Z88.6 Allergy status to analgesic agent
CPT/HCPCS: 70450; 72125; 72170; 73562-LT; 73562-RT; 73610; 80053; 83690; 85025; 85610; 85730; 93005; 93010; 99284-25

== ENCOUNTER 2025-05-27 11:25 | Emergency (ER) | payer OTHER ==
[~2025-05-27] VITALS: Ht 175.3 cm; Wt 90.7 kg
[2025-05-27 11:56] LABS: BASOPHILS ABSOLUTE AUTO 0.10 K/mm3 (0.00-0.23); BASOPHILS PERCENT AUTO 1 % (0-2); EOSINOPHILS ABSOLUTE AUTO 0.14 K/mm3 (0.00-0.68); EOSINOPHILS PERCENT AUTO 1 % (0-6); Hematocrit 36.5 % (37.0-53.0); Hemoglobin 11.7 g/dL (13.5-17.5); IMMATURE GRAN ABSOLUTE AUTO 0.07 K/mm3 (0.00-0.10); IMMATURE GRAN PERCENT AUTO 1 % (0-1); LYMPHOCYTES ABSOLUTE AUTO 2.06 K/mm3 (0.84-5.20); LYMPHOCYTES PERCENT AUTO 18 % (21-46); MONOCYTES ABSOLUTE AUTO 0.97 K/mm3 (0.16-1.47); MONOCYTES PERCENT AUTO 8 % (4-13); Mean Corpuscular HGB Conc 32.1 g/dL (31.5-36.5); Mean Corpuscular Volume 99 fL (80-100); NEUTROPHILS ABSOLUTE AUTO 8.35 K/mm3 (1.96-9.15); NEUTROPHILS PERCENT AUTO 71 % (41-73); NRBC ABSOLUTE 0.00 K/mm3 (0.00-0.02); NRBC Auto 0.0 /100 WBC (0.0-0.2); Platelet Count 192 K/mm3 (150-400); RDW Coefficient Variation 14.5 % (11.7-14.2); RDW Standard Deviation 52.1 fL (35.1-46.3)
[2025-05-27 12:35] LABS: Alanine Aminotransfer (ALT/SGP 35.0 U/L (12-78); Albumin, Blood 3.3 g/dL (3.4-5.0); Albumin/Globulin Ratio 1.0 (0.8-1.8); Anion Gap 8.0 mmol/L (3-11); Aspartate Aminotrans (AST/SGOT 26.0 U/L (12-37); Bilirubin, Total 0.4 mg/dL (0.1-1.0); Blood Urea Nitrogen 15.0 mg/dL (8-24); C-REACTIVE PROTEIN, EXT RANGE 0.434 mg/dL (0.000-0.300); CO2, Blood 27.0 mmol/L (21-32); Calcium, Blood 9.0 mg/dL (8.5-10.1); Chloride, Blood 108.0 mmol/L (98-108); Creatinine, Blood 0.8 mg/dL (0.60-1.20); Globulin, Blood 3.2 g/dL (2.2-4.0); Glucose, Blood 117.0 mg/dL (70-99); Potassium, Blood 3.9 mmol/L (3.5-5.5); Sodium, Blood 139.0 mmol/L (136-145); Total Protein, Blood 6.5 g/dL (6.4-8.2); Uric Acid, Blood 4.0 mg/dL (3.5-7.2)
[2025-05-27] MEDS ORDERED: Colchicine 0.6 MG TAB PO ONE (15:55)
[2025-05-27] MEDS ORDERED: OXAYDO5 M1 PO (16:19)
[2025-05-27] MEDS ORDERED: CEPH500 PO (16:19)
[2025-05-27 16:45] VITALS: BP 155/113
== END 2025-05-27 16:50 | disposition home or self-care (01) ==
LOC: ER 11:25
PROVIDERS: Physician Assistant
DX: M79.642 Pain in left hand (principal); F17.210 Nicotine dependence, cigarettes, uncomplicated; Z79.899 Other long term (current) drug therapy; Z88.5 Allergy status to narcotic agent; Z88.6 Allergy status to analgesic agent
CPT/HCPCS: 73130; 80053; 84550; 85025; 85651; 86140; 99283-25; A9270

== ENCOUNTER 2025-05-29 12:33 | Inpatient (IN) | payer OTHER ==
[~2025-05-29] VITALS: Ht 175.3 cm; Wt 90.7 kg
[~2025-05-29 12:33] MED LIST changes: +OXAYDO5 M1 PO
[2025-05-29 13:25] LABS: BASOPHILS ABSOLUTE AUTO 0.11 K/mm3 (0.00-0.23); BASOPHILS PERCENT AUTO 1 % (0-2); EOSINOPHILS ABSOLUTE AUTO 0.13 K/mm3 (0.00-0.68); EOSINOPHILS PERCENT AUTO 1 % (0-6); Hematocrit 36.4 % (37.0-53.0); Hemoglobin 12.0 g/dL (13.5-17.5); IMMATURE GRAN ABSOLUTE AUTO 0.06 K/mm3 (0.00-0.10); IMMATURE GRAN PERCENT AUTO 1 % (0-1); LYMPHOCYTES ABSOLUTE AUTO 1.69 K/mm3 (0.84-5.20); LYMPHOCYTES PERCENT AUTO 16 % (21-46); MONOCYTES ABSOLUTE AUTO 1.02 K/mm3 (0.16-1.47); MONOCYTES PERCENT AUTO 10 % (4-13); Mean Corpuscular HGB Conc 33.0 g/dL (31.5-36.5); Mean Corpuscular Volume 98 fL (80-100); NEUTROPHILS ABSOLUTE AUTO 7.39 K/mm3 (1.96-9.15); NEUTROPHILS PERCENT AUTO 71 % (41-73); NRBC ABSOLUTE 0.00 K/mm3 (0.00-0.02); NRBC Auto 0.0 /100 WBC (0.0-0.2); Platelet Count 189 K/mm3 (150-400); RDW Coefficient Variation 14.3 % (11.7-14.2); RDW Standard Deviation 50.8 fL (35.1-46.3)
[2025-05-29 13:56] LABS: Alanine Aminotransfer (ALT/SGP 30.0 U/L (12-78); Albumin, Blood 3.6 g/dL (3.4-5.0); Albumin/Globulin Ratio 1.1 (0.8-1.8); Anion Gap 6.0 mmol/L (3-11); Aspartate Aminotrans (AST/SGOT 26.0 U/L (12-37); Bilirubin, Total 0.5 mg/dL (0.1-1.0); Blood Urea Nitrogen 14.0 mg/dL (8-24); CO2, Blood 29.0 mmol/L (21-32); Calcium, Blood 9.0 mg/dL (8.5-10.1); Chloride, Blood 106.0 mmol/L (98-108); Creatinine, Blood 0.73 mg/dL (0.60-1.20); Globulin, Blood 3.3 g/dL (2.2-4.0); Glucose, Blood 138.0 mg/dL (70-99); Potassium, Blood 3.5 mmol/L (3.5-5.5); Sodium, Blood 137.0 mmol/L (136-145); Total Protein, Blood 6.9 g/dL (6.4-8.2)
[2025-05-29] MEDS ORDERED: Morphine Sulfate 4 MG/1 ML Injection IV ONE (18:10)
[2025-05-29] MEDS ORDERED: Ondansetron HCl 2 MG / ML 2ML Vial IV ONE (18:15)
[2025-05-29] MEDS ORDERED: Vancomycin HCL 2,000 MG in NS 520 ML IV ONE (18:15)
[2025-05-29] MEDS ORDERED: ATORVASTATIN CA20 MG PO (18:49)
[2025-05-29] MEDS ORDERED: TADALAFIL20 M1 PO (18:50)
[2025-05-29] MEDS ORDERED: FentaNYL Citrate 50 MCG/ML 2 ML Injection IV PRN (18:55)
[2025-05-29] MEDS ORDERED: NS 1,000 ML IV SCH (18:55)
[2025-05-29] MEDS ORDERED: Ondansetron HCl 2 MG / ML 2ML Vial IV PRN (19:00)
[2025-05-29] MEDS ORDERED: Vancomycin (Pharmacy Consult) IV SCH (19:00)
[2025-05-29] MEDS ORDERED: FLU VACC TS2025-26(6MOS UP)/PF 45 MCG/0.5 ML SYRINGE IM SCH (19:00)
[2025-05-29] MEDS ORDERED: Ampicillin Sod/Sulbactam Sod 3 GM in NS 100 ML IV SCH (19:30)
[2025-05-29 21:52] VITALS: BP 133/66
[2025-05-29] MEDS ORDERED: NS 250 ML IV PRN (22:15)
[2025-05-29 22:42] LABS: Prothrombin Time Results 10.9 Sec (9.7-11.5)
[2025-05-30] VITALS (7 sets, daily range): BP systolic 102–133; BP diastolic 60–83
[2025-05-30 06:12] LABS: BASOPHILS ABSOLUTE AUTO 0.04 K/mm3 (0.00-0.23); BASOPHILS PERCENT AUTO 0 % (0-2); EOSINOPHILS ABSOLUTE AUTO 0.01 K/mm3 (0.00-0.68); EOSINOPHILS PERCENT AUTO 0 % (0-6); Hematocrit 33.8 % (37.0-53.0); Hemoglobin 11.0 g/dL (13.5-17.5); IMMATURE GRAN ABSOLUTE AUTO 0.04 K/mm3 (0.00-0.10); IMMATURE GRAN PERCENT AUTO 0 % (0-1); LYMPHOCYTES ABSOLUTE AUTO 0.60 K/mm3 (0.84-5.20); LYMPHOCYTES PERCENT AUTO 6 % (21-46); MONOCYTES ABSOLUTE AUTO 0.15 K/mm3 (0.16-1.47); MONOCYTES PERCENT AUTO 2 % (4-13); Mean Corpuscular HGB Conc 32.5 g/dL (31.5-36.5); Mean Corpuscular Volume 97 fL (80-100); NEUTROPHILS ABSOLUTE AUTO 8.97 K/mm3 (1.96-9.15); NEUTROPHILS PERCENT AUTO 92 % (41-73); NRBC ABSOLUTE 0.00 K/mm3 (0.00-0.02); NRBC Auto 0.0 /100 WBC (0.0-0.2); Platelet Count 178 K/mm3 (150-400); RDW Coefficient Variation 14.4 % (11.7-14.2); RDW Standard Deviation 50.4 fL (35.1-46.3)
--- NOTE | 2025-05-30 06:27 | NUR ---
SHIFT SUMMARY ADMIT IN EVENING 05/29/25 FOR L FOREARM + HAND CELLULITIS, PHLEBITIS, AND SUPERFICIAL VENOUS THROMBUS TO DISTAL FOREARM. IV UNASYN + VANCOMYCIN VIA RAC IV. NEGATIVE CIWA. AWAITING DECISION FOR NPO VERSUS DIET ORDER. TOLERATED REGULAR DIET IN ED LAST NIGHT WELL, AND HAS REMAINED NPO SINCE MIDNIGHT. SEVERE PAIN IN LUE MANAGED PER EMAR, REST, AND ELEVATION. HISTORY OF SMOKING/SNORTING METH, THC USE, AND 6-PACK OF BEER/DAY. PT REPORTED LAST METH 10 DAYS AGO. DENIED ANY IVDA. DAILY SMOKER OF 1 PPD, NO CRAVINGS REPORTED, THOUGH CONSIDER NICOTINE PATCH/GUM. ALSO REPORTED PORCINE HEART VALVE PRESENT, AND DENIED HX OF AFIB THOUGH THIS IS DOCUMENTED IN HIS CHART. MENTION OF HEPARIN BY PROVIDER YESTERDAY, NEED TO FOLLOW-UP ON THIS. A&OX4.AMBULATORY, INDEPENDENT IN ROOM.
[2025-05-30 06:44] LABS: Alanine Aminotransfer (ALT/SGP 26.0 U/L (12-78); Albumin, Blood 3.1 g/dL (3.4-5.0); Albumin/Globulin Ratio 0.9 (0.8-1.8); Anion Gap 9.0 mmol/L (3-11); Aspartate Aminotrans (AST/SGOT 23.0 U/L (12-37); Bilirubin, Total 0.4 mg/dL (0.1-1.0); Blood Urea Nitrogen 13.0 mg/dL (8-24); CO2, Blood 26.0 mmol/L (21-32); Calcium, Blood 8.5 mg/dL (8.5-10.1); Chloride, Blood 108.0 mmol/L (98-108); Creatinine, Blood 0.63 mg/dL (0.60-1.20); Globulin, Blood 3.3 g/dL (2.2-4.0); Glucose, Blood 156.0 mg/dL (70-99); Potassium, Blood 4.0 mmol/L (3.5-5.5); Sodium, Blood 139.0 mmol/L (136-145); Total Protein, Blood 6.4 g/dL (6.4-8.2)
[2025-05-30] MEDS ORDERED: FentaNYL Citrate 50 MCG/ML 2 ML Injection IV PRN (16:05)
--- NOTE | 2025-05-30 18:16 | NUR ---
PATIENT A/OX4, UP INDEPENDENTLY IN ROOM. VSS, ON RA. L ARM RED/SWOLLEN, VANCO AND UNASYN TO TREAT. PATIENT MEDICATED WITH TRAMADOL AND FENTANYL TO CONTROL PAIN WITH STATED RELEIF. PATIENT FOUND USING MARIJUANA VAPE PEN TODAY AND IT WAS TAKEN AND LOCKED IN DRAWER NOTIFIED. PATIENT IRRITABLE AT TIMES, BUT COOPERATIVE WITH CARE. NO NEW CONCERNS THIS SHIFT.
[2025-05-31 04:11] VITALS: BP 109/59
[2025-05-31 06:05] LABS: BASOPHILS ABSOLUTE AUTO 0.09 K/mm3 (0.00-0.23); BASOPHILS PERCENT AUTO 1 % (0-2); EOSINOPHILS ABSOLUTE AUTO 0.13 K/mm3 (0.00-0.68); EOSINOPHILS PERCENT AUTO 1 % (0-6); Hematocrit 31.9 % (37.0-53.0); Hemoglobin 10.3 g/dL (13.5-17.5); IMMATURE GRAN ABSOLUTE AUTO 0.05 K/mm3 (0.00-0.10); IMMATURE GRAN PERCENT AUTO 1 % (0-1); LYMPHOCYTES ABSOLUTE AUTO 2.35 K/mm3 (0.84-5.20); LYMPHOCYTES PERCENT AUTO 24 % (21-46); MONOCYTES ABSOLUTE AUTO 0.94 K/mm3 (0.16-1.47); MONOCYTES PERCENT AUTO 10 % (4-13); Mean Corpuscular HGB Conc 32.3 g/dL (31.5-36.5); Mean Corpuscular Volume 98 fL (80-100); NEUTROPHILS ABSOLUTE AUTO 6.23 K/mm3 (1.96-9.15); NEUTROPHILS PERCENT AUTO 64 % (41-73); NRBC ABSOLUTE 0.00 K/mm3 (0.00-0.02); NRBC Auto 0.0 /100 WBC (0.0-0.2); Platelet Count 198 K/mm3 (150-400); RDW Coefficient Variation 14.1 % (11.7-14.2); RDW Standard Deviation 51.1 fL (35.1-46.3)
--- NOTE | 2025-05-31 06:29 | NUR ---
Shift Summary No acute changse. Pt medicated for RUE pain per EMAR. He he hopefuly he can go home on PO ABX soon. AOx4, independent in the room, cooperative with care.
[2025-05-31 06:41] LABS: Alanine Aminotransfer (ALT/SGP 31 U/L (12-78); Albumin, Blood 2.8 g/dL (3.4-5.0); Albumin/Globulin Ratio 0.9 (0.8-1.8); Anion Gap 8 mmol/L (3-11); Aspartate Aminotrans (AST/SGOT 34 U/L (12-37); Bilirubin, Total 0.2 mg/dL (0.1-1.0); Blood Urea Nitrogen 19 mg/dL (8-24); CO2, Blood 27 mmol/L (21-32); Calcium, Blood 8.1 mg/dL (8.5-10.1); Chloride, Blood 109 mmol/L (98-108); Creatinine, Blood 0.71 mg/dL (0.60-1.20); Globulin, Blood 3.1 g/dL (2.2-4.0); Glucose, Blood 112 mg/dL (70-99); Potassium, Blood 3.8 mmol/L (3.5-5.5); Sodium, Blood 140 mmol/L (136-145); Total Protein, Blood 5.9 g/dL (6.4-8.2); Vancomycin, Trough 13.3 ug/mL (5.0-10.0)
[2025-05-31] MEDS ORDERED: Potassium Chloride 10 Meq Tablet SA PO ONE (07:20)
[2025-05-31 07:30] VITALS: BP 133/74
[2025-05-31] MEDS ORDERED: CLOP75 PO (13:29)
[2025-05-31] MEDS ORDERED: VISBIOME 112.51 EACH PO (13:30)
[2025-05-31] MEDS ORDERED: SULTRIDS PO (13:30)
[2025-05-31] MEDS ORDERED: TRAM50 PO (13:34)
--- NOTE | 2025-05-31 14:16 | NUR ---
PATIENT DC'D TO HOME WITH FAMILY. DC INSTRUCTIONS AND EDUCATION DISCUSSED WITH PATIENT AND COPY PROVIDED. RX MEDICATIONS FAXED TO [facility]. HARD SCRIPT FOR TRAMADOL GIVEN TO PATIENT. PATIENT DENIES ANY FURTHER QUESTIONS OR CONCERNS.
== END 2025-05-31 14:00 | disposition home or self-care (01) | DRG 603 ==
LOC: ER 12:33 → MEDS 18:40 → ERHOLD 18:40 → MEDS 21:40
PROVIDERS: Emergency Medicine; Student in an Organized Health Care Education/Training Program; ADMIT Internal Medicine
DX: L03.113 Cellulitis of right upper limb (principal); I48.20 Chronic atrial fibrillation, unspecified; I50.22 Chronic systolic (congestive) heart failure; I82.612 Acute embolism and thrombosis of superficial veins of left upper extremity; L03.114 Cellulitis of left upper limb; J44.9 Chronic obstructive pulmonary disease, unspecified; M19.90 Unspecified osteoarthritis, unspecified site; E78.5 Hyperlipidemia, unspecified; F15.90 Other stimulant use, unspecified, uncomplicated; I11.0 Hypertensive heart disease with heart failure; E87.6 Hypokalemia; F17.210 Nicotine dependence, cigarettes, uncomplicated; Z96.641 Presence of right artificial hip joint; Z96.652 Presence of left artificial knee joint; Z95.3 Presence of xenogenic heart valve; Z86.711 Personal history of pulmonary embolism; Z86.16 Personal history of COVID-19; Z88.5 Allergy status to narcotic agent; Z88.6 Allergy status to analgesic agent; Z79.01 Long term (current) use of anticoagulants
CPT/HCPCS: 36415; 73201; 80053; 80162; 80202; 83036; 83605; 83880; 85025; 85610; 93971; 96374-59; 96375-59; 99284-25; A9270; J0295; J2270; J2405; J2919; J3010; J3373; J7040; J7050; Q9967

== ENCOUNTER 2025-06-04 02:44 | Emergency (ER) | payer OTHER ==
[~2025-06-04] VITALS: Ht 175.3 cm; Wt 90.7 kg
[~2025-06-04 02:44] MED LIST changes: +ATORVASTATIN CA20 MG PO; +CLOP75 PO; +SULTRIDS PO; +TADALAFIL20 M1 PO; +TRAM50 PO; +VISBIOME 112.51 EACH PO
[2025-06-04 03:09] VITALS: BP 159/85
== END 2025-06-04 04:24 | disposition home or self-care (01) ==
LOC: ER 02:44
DX: M79.642 Pain in left hand (principal); R22.32 Localized swelling, mass and lump, left upper limb; I48.91 Unspecified atrial fibrillation; F17.210 Nicotine dependence, cigarettes, uncomplicated; Z88.5 Allergy status to narcotic agent; Z88.6 Allergy status to analgesic agent; Z79.01 Long term (current) use of anticoagulants; Z79.02 Long term (current) use of antithrombotics/antiplatelets; Z79.899 Other long term (current) drug therapy
CPT/HCPCS: 99282